=== PATIENT | male | born 1990 | race Caucasian/White ===

== ENCOUNTER 2020-11-15 12:56 | Emergency (ER) | payer SELFPAY ==
[~2020-11-15] VITALS: Ht 172.7 cm; Wt 98.9 kg
[~2020-11-15 12:56] MED LIST: PREVACID30 M1 PO
[2020-11-15 13:30] VITALS: BP 169/99
[2020-11-15] MEDS ORDERED: CYCLOBENZAPRINE10 MG PO (14:21)
[2020-11-15] MEDS ORDERED: VOLTAREN100 GM T (14:21)
[2020-11-15] MEDS ORDERED: TYLENOL325 M1 PO (14:21)
[2020-11-15] MEDS ORDERED: NAPROXEN250 MG PO (14:21)
[2020-11-15] MEDS ORDERED: ARTHRITIS PAI42.5 GM T (14:22)
== END 2020-11-15 14:24 | disposition home or self-care (01) ==
LOC: ED 12:56
DX: M25.511 Pain in right shoulder (principal); G89.29 Other chronic pain; M54.5 Low back pain; R20.2 Paresthesia of skin; F17.200 Nicotine dependence, unspecified, uncomplicated

== ENCOUNTER 2022-08-11 15:20 | Emergency (ER) | payer SELFPAY ==
[~2022-08-11 15:20] MED LIST changes: +ARTHRITIS PAI42.5 GM T; +CYCLOBENZAPRINE10 MG PO; +NAPROXEN250 MG PO; +TYLENOL325 M1 PO; +VOLTAREN100 GM T
[2022-08-11 15:25] VITALS: BP 134/82
== END 2022-08-11 15:32 | disposition left against medical advice (07) ==
LOC: ED 15:20
DX: T40.1X4A Poisoning by heroin, undetermined, initial encounter (principal); Z98.890 Other specified postprocedural states; Y92.89 Other specified places as the place of occurrence of the external cause